=== PATIENT | female | born 1965 | race American Indian/Alaskan Native ===

== ENCOUNTER 2018-02-19 13:28 | Emergency (ER) | payer SELFPAY ==
[2018-02-19] MEDS ORDERED: PERCOCET 5/325 PO ONE (13:40)
[2018-02-19] MEDS ORDERED: BICILLIN L-A IM ONE (13:40)
[2018-02-19] MEDS ORDERED: CATAPRES PO ONE (13:41)
--- NOTE | 2018-02-19 13:42 | Emergency Department Report ---
ED ENT HPI - General Chief complaint: Dental/Oral Stated complaint: TOOTHACHE Time Seen by Provider: 02/19/18 13:39 Source: patient Mode of arrival: Ambulatory Limitations: No Limitations - History of Present Illness Initial comments: 1 W HX OF LOWER REAR MOLAR PAIN TOOK OTC MEDS W SOME RELIEF BUT PAIN TODAY IS UNBEARABLE. SHE IS CRYING IN PAIN CO R UPPER AND LOWER DENTAL PAIN LAST AT [facility] 3 Y AGO NO INSURANCE VSS NO ABSCESS TAKING PO MD complaint: tooth pain -: Gradual, days(s) Location: R ear Severity: severe Quality: aching Consistency: constant Improves with: none Worsens with: eating Associated Symptoms: toothache. denies: fever, cough, gum swelling, pain with swallowing, sore throat, tinnitus, hearing loss, discharge from ear, rhinorrhea - Related Data Previous Rx's Medication Instructions Recorded Last Taken Type Amoxicillin 500 mg PO BID #20 capsule 02/19/18 Unknown Rx Lisinopril [Zestril] 10 mg PO DAILY #30 tablet 02/19/18 Unknown Rx Naproxen [Naprosyn] 500 mg PO BID PRN #20 tablet 02/19/18 Unknown Rx traMADol [Ultram] 50 mg PO Q6HR PRN #10 tablet 02/19/18 Unknown Rx Allergies Allergy/AdvReac Type Severity Reaction Status Date / Time Sulfa (Sulfonamide Allergy Hives Verified 02/19/18 13:35 Antibiotics) ED Dental HPI - General Chief complaint: Dental/Oral Stated complaint: TOOTHACHE Time Seen by Provider: 02/19/18 13:39 Source: patient Mode of arrival: Ambulatory Limitations: No Limitations - Related Data Previous Rx's Medication Instructions Recorded Last Taken Type Amoxicillin 500 mg PO BID #20 capsule 02/19/18 Unknown Rx Lisinopril [Zestril] 10 mg PO DAILY #30 tablet 02/19/18 Unknown Rx Naproxen [Naprosyn] 500 mg PO BID PRN #20 tablet 02/19/18 Unknown Rx traMADol [Ultram] 50 mg PO Q6HR PRN #10 tablet 02/19/18 Unknown Rx Allergies Allergy/AdvReac Type Severity Reaction Status Date / Time Sulfa (Sulfonamide Allergy Hives Verified 02/19/18 13:35 Antibiotics) ED Review of Systems ROS: Stated complaint: TOOTHACHE Other details as noted in HPI Comment: All other systems reviewed and negative Constitutional: no symptoms reported Eyes: denies: eye pain ENT: dental pain. denies: ear pain, throat pain, hearing loss Respiratory: denies: cough, orthopnea, shortness of breath, SOB with exertion Cardiovascular: denies: chest pain, palpitations, dyspnea on exertion Endocrine: denies: excessive sweating, flushing, intolerance to cold, intolerance to heat Gastrointestinal: denies: abdominal pain, nausea, vomiting Genitourinary: denies: urgency, dysuria Musculoskeletal: denies: back pain Skin: denies: rash, lesions Neurological: denies: headache, weakness Psychiatric: denies: anxiety, depression Hematological/Lymphatic: denies: easy bleeding ED Past Medical Hx - Past Medical History Previous Medical History?: Yes Hx Hypertension: Yes - Surgical History Past Surgical History?: Yes Additional Surgical History: Left knee surgery - Family History Family history: no significant - Social History Smoking Status: Never Smoker Substance Use Type: None - Medications Home Medications: Home Medications Medication Instructions Recorded Confirmed Last Taken Type Amoxicillin 500 mg PO BID #20 capsule 02/19/18 Unknown Rx Lisinopril [Zestril] 10 mg PO DAILY #30 tablet 02/19/18 Unknown Rx Naproxen [Naprosyn] 500 mg PO BID PRN #20 tablet 02/19/18 Unknown Rx traMADol [Ultram] 50 mg PO Q6HR PRN #10 tablet 02/19/18 Unknown Rx ED Physical Exam - General Limitations: No Limitations General appearance: alert - Head Head exam: Present: normocephalic - Eye Eye exam: Present: PERRL - ENT ENT exam: Present: mucous membranes moist, other (DENTAL PAIN 1-2 AND 32 AREAS. NO ABSCESS. NO TRISIS., TAKING PO FLUIDS, CONTROLLING SECRETIONS, NO VISIBLE DENTAL ABSCESS. DIFFUSE CARIES NOTED ON EXAM. NO FEVER. IN OBVIOUS PAIN. ) - Neck Neck exam: Present: normal inspection. Absent: tenderness, meningismus - Respiratory Respiratory exam: Present: normal lung sounds bilaterally. Absent: respiratory distress, wheezes, rales, rhonchi - Cardiovascular Cardiovascular Exam: Present: regular rate, tachycardia, normal heart sounds - GI/Abdominal GI/Abdominal exam: Present: soft, normal bowel sounds - Rectal Rectal exam: Present: deferred - Extremities Exam Extremities exam: Present: normal inspection, full ROM, normal capillary refill. Absent: tenderness - Back Exam Back exam: Present: normal inspection, full ROM. Absent: tenderness, CVA tenderness (R), CVA tenderness (L), muscle spasm - Neurological Exam Neurological exam: Present: alert, oriented X3, CN II-XII intact, normal gait - Psychiatric Psychiatric exam: Present: normal affect, normal mood - Skin Skin exam: Present: warm, dry, intact, normal color. Absent: rash ED Course Vital Signs 02/19/18 02/19/18 13:32 13:56 Temperature 98.1 F Pulse Rate 106 H 106 H Respiratory 20 Rate Blood Pressure 170/94 170/94 O2 Sat by Pulse 100 Oximetry - Reevaluation(s) Reevaluation #1: 02/19/18 TO ER TODAY W SEVERAL DAY HX DENTAL PAIN NOW WORSENING STARTED LOWER MOLAR NO 32 AREA NO THERE AND IN 1-2 AREA. NO ABSCESS SEE EXAM MEDICATED WITH RELIEF- BICILLIN, PERCOCET 5, ZOFRAN DISCUSSED W PT THE NEED TO SEE DMD. SHE VERBALIZES UNDERSTANDING PT OUT OF HER BP MEDS GIVEN RX FOR HER LISINOPRIL ON REEVAL PAIN MUCH IMPROVED BUT NOT GONE. GIVEN TORADOL IN PREP FOR DISCHARGE AGAIN DISCUSSED WITH PT THE NEED TO SEE DMD THAT WHAT WE DID WAS GOING TO TEMPORIZE THE SITUATION ONLY ON DC TAKING PO AMBULATING VSS- HR 90 ON REEVAL DC HOME W DC POC ED Medical Decision Making - Medical Decision Making DENTAL PAIN TAKING PO NO OTONIEL./ ABSCESS RELIEF WITH MEDICATION HERE IN ER - Differential Diagnosis DENTAL PAIN V DENTAL ABSCESS Critical care attestation.: If time is entered above; I have spent that time in minutes in the direct care of this critically ill patient, excluding procedure time. ED Disposition Clinical Impression: Pain, dental, Hypertension, Medication refill Disposition: DC-01 TO HOME OR SELFCARE Is pt being admited?: No Does the pt Need Aspirin: No Condition: Stable Instructions: Dental Caries (ED), Hypertension (ED), Toothache (ED) Additional Instructions: FOLLOW UP WITH DMD BUCKY FOLLOW UP WITH PCP RELATED TO YOUR BLOOD PRESSURE HYDRATE WELL MEDS ORDERED TODAY ACTIVITY TOLERATED Prescriptions: Amoxicillin 500 mg PO BID #20 capsule Lisinopril [Zestril] 10 mg PO DAILY #30 tablet Naproxen [Naprosyn] 500 mg PO BID PRN #20 tablet PRN Reason: Pain traMADol [Ultram] 50 mg PO Q6HR PRN #10 tablet PRN Reason: Pain Referrals: PRIMARY CAREMD [Primary Care Provider] - 3-5 Days OTIS PATEL MD [Referring] - 3-5 Days [facility] [Outside] - 3-5 Days [facility] [Outside] - 3-5 Days Time of Disposition: 14:39
[2018-02-19] MEDS ORDERED: ZOFRAN ODT ONE ×2 (13:53→13:55)
[2018-02-19] MEDS ORDERED: TORADOL IM ONE (14:36)
[2018-02-19] MEDS ORDERED: ZOFRAN PO ONE (14:41)
[2018-02-19 14:58] VITALS: BP 112/65
== END 2018-02-19 14:50 | disposition home or self-care (01) ==
LOC: ED 13:28
DX: K08.89 Other specified disorders of teeth and supporting structures (principal); I10 Essential (primary) hypertension; Z76.0 Encounter for issue of repeat prescription; Z98.890 Other specified postprocedural states; Z88.2 Allergy status to sulfonamides
CPT/HCPCS: 99282; J0561; J1885; Q0162